=== PATIENT | female | born 2000 ===

== ENCOUNTER 2021-11-21 05:11 | Day surgery (SDC) | payer OTHER ==
[~2021-11-21] VITALS: Ht 170.2 cm; Wt 60.8 kg
== END 2021-11-21 17:00 | disposition home or self-care (01) ==
LOC: CIR.AMB 05:11
PROVIDERS: ATTEND Colon & Rectal Surgery
DX: K64.1 Second degree hemorrhoids (principal); Z20.822 Contact with and (suspected) exposure to COVID-19; Z91.013 Allergy to seafood; Z88.6 Allergy status to analgesic agent; E11.9 Type 2 diabetes mellitus without complications